=== PATIENT | female | born 1945 | race Caucasian/White ===

== ENCOUNTER 2016-12-04 13:39 | Outpatient (CLI) | payer MEDICARE | END 2016-12-04 13:40 | disposition home or self-care (01) | DX: R41.3 Other amnesia (principal); M25.531 Pain in right wrist; S52.511A Displaced fracture of right radial styloid process, initial encounter for closed fracture ==

== ENCOUNTER 2016-12-04 14:22 | Outpatient (CLI) | payer MEDICARE | END 2016-12-04 14:23 | disposition home or self-care (01) | DX: M25.531 Pain in right wrist (principal); S52.511A Displaced fracture of right radial styloid process, initial encounter for closed fracture ==

== ENCOUNTER 2016-12-24 10:57 | Outpatient (CLI) | payer MEDICARE | END 2016-12-24 10:58 | disposition home or self-care (01) | DX: K59.00 Constipation, unspecified (principal) ==

== ENCOUNTER 2017-02-14 14:30 | Outpatient (CLI) | payer MEDICARE | END 2017-02-14 14:31 | disposition home or self-care (01) | DX: S97.82XA Crushing injury of left foot, initial encounter (principal); S92.355A Nondisplaced fracture of fifth metatarsal bone, left foot, initial encounter for closed fracture; W18.30XA Fall on same level, unspecified, initial encounter; M20.12 Hallux valgus (acquired), left foot ==

== ENCOUNTER 2017-03-22 15:40 | Outpatient (CLI) | payer MEDICARE ==
--- NOTE | 2017-03-22 18:31 | XRAY Report ---
THREE-VIEW LEFT FOOT: 03/22/2017 CLINICAL INDICATION: Fracture followup. FINDINGS: AP, lateral, oblique views of the left foot demonstrate callus formation at the fifth meta tarsal shaft fracture site. Hallux valgus and osteoarthritis appear stable. No new fracture is seen . IMPRESSION: INTERVAL CALLUS FORMATION AT THE LEFT FIFTH METATARSAL FRACTURE SITE, BUT FRACTURE LINES DO REMAIN EVIDENT. JOB #: [id number] EXT JOB #:[id number]
== END 2017-03-22 23:59 | disposition home or self-care (01) ==
LOC: DI.S 15:40
PROVIDERS: ATTEND Physician Assistant
DX: S92.352D Displaced fracture of fifth metatarsal bone, left foot, subsequent encounter for fracture with routine healing (principal)

== ENCOUNTER 2017-05-10 10:18 | Outpatient (CLI) | payer MEDICARE ==
--- NOTE | 2017-05-11 16:47 | Mammography Report ---
DIGITAL SCREENING MAMMOGRAM: 05/10/2017 CLINICAL INDICATION: A 71-year-old with family history of breast cancer, history of late childbearin g, history of bilateral benign biopsies for screening. TECHNIQUE: Routine CC and MLO projections were obtained of the breasts. The patient was uncertain where her previous mammograms were performed, and there are no records of p revious mammograms performed at our facility. If records in your office indicate where prior mammogr ams were performed, we would be happy to try to obtain them for direct comparison. Otherwise, this w ill serve as a new baseline. FINDINGS: The breasts demonstrate heterogeneously dense fibroglandular parenchyma bilaterally. A fe w punctate, typically benign calcifications are present. Post-biopsy changes are noted bilaterally. No suspicious masses, clustered microcalcifications, or regions of architectural distortion are iden tified. IMPRESSION: BENIGN FINDINGS. RECOMMENDATION: Routine annual screening unless otherwise clinically indicated. BIRADS CATEGORY 2 - BENIGN FINDINGS. STANDARD QUALIFYING STATEMENTS 1. This examination was reviewed with the aid of Computer-Aided Detection (CAD). 2. A negative or benign imaging report should not delay biopsy if clinically suspicious findings are present. Consider surgical consultation if warranted. More than 5% of cancers are not identified by i danika. 3. Dense breasts may obscure an underlying neoplasm. JOB #: [id number] EXT JOB #:[id number]
== END 2017-05-10 10:19 | disposition home or self-care (01) ==
LOC: DI 10:18
PROVIDERS: ATTEND Physician Assistant
DX: Z12.31 Encounter for screening mammogram for malignant neoplasm of breast (principal); Z80.3 Family history of malignant neoplasm of breast
CPT/HCPCS: 77067

== ENCOUNTER 2017-05-10 10:20 | Outpatient (CLI) | payer MEDICARE ==
--- NOTE | 2017-05-10 13:05 | DEXA Report ---
DEXA SCAN: 05/10/2017 CLINICAL INDICATION: Postmenopausal. TECHNIQUE: Dual energy x-ray absorptiometry (DXA) was performed on a [employer] system. Regions measured are the AP spine, femoral neck, and, if needed, forearm. COMPARISON: None. In accordance with the International Society for Clinical Densitometry (ISCD) guidelines, data from previous exams may be reanalyzed using current recommendations and techniques. This is done to allow a more accurate basis for comparison with the current study. FINDINGS: The data for the lumbar spine is as follows: REGION BMD (g/cm/cm) T-SCORE Z-SCORE L1 0.914 -1.8 -0.7 L2 0.977 -1.9 -0.8 L3 1.180 -0.2 0.9 L4 1.163 -0.3 0.8 TOTAL 1.071 -0.9 0.2 NOTE: All evaluable vertebrae are used for classification. The data for the hip is as follows: REGION BMD (g/cm/cm) T-SCORE Z-SCORE Neck 0.732 -2.2 -0.9 TOTAL 0.861 -1.2 -0.1 NOTE: The femoral neck or total proximal femur, whichever is lowest, is used for classification. IMPRESSION: THE WHO CLASSIFICATION BASED ON THE INTERNATIONAL REFERENCE STANDARD IS OSTEOPENIA. THE FRACTURE RISK IS INCREASED. RECOMMENDATION: Patients with diagnosis of osteoporosis or osteopenia should have regular bone mineral density assessment. For those eligible for Medicare, routine testing is allowed once every 2 years. Testing frequency can be increased for patients who have rapidly progressing disease or for those who are receiving medical therapy to restore bone mass. COMMENT: World Health Organization (WHO) definitions for osteoporosis and osteopenia: NORMAL BMD: T-score at -1.0 or higher, fracture risk is low. OSTEOPENIA BMD: T-score between -1.0 and -2.5, fracture risk is increased. OSTEOPOROSIS BMD: T-score at -2.5 or lower, fracture risk high. National Osteoporosis Foundation recommends: 1. Obtain adequate dietary calcium (at least 1200 mg per day) and vitamin D (400 -800 international units per day). 2. Participate, as appropriate, in regular weightbearing and muscle- strengthening exercise. 3. Avoid tobacco use and reduce alcohol and caffeine intake. 4. For more detailed information see the website at www.NOF.org. MTDD
== END 2017-05-10 10:21 | disposition home or self-care (01) ==
LOC: DI 10:20
PROVIDERS: ATTEND Physician Assistant
DX: M85.88 Other specified disorders of bone density and structure, other site (principal)
CPT/HCPCS: 77080

== ENCOUNTER 2017-10-20 10:29 | Outpatient (CLI) | payer MEDICARE ==
--- NOTE | 2017-10-20 13:13 | XRAY Report ---
RIGHT RIB SERIES: 10/20/2017 COMPARISON: Two-view chest 06/17/2014. INDICATION: Right chest pain. TECHNIQUE: Three views of the right ribs with frontal chest. FINDINGS: There is a possible nondisplaced fracture of the right posterior fourth rib. No displaced fractures or pneumothorax. Lungs appear otherwise clear. There is postoperative change of the right humeral head. IMPRESSION: POSSIBLE NONDISPLACED FRACTURE OF THE RIGHT POSTERIOR FOURTH RIB. CORRELATE CLINICALLY. :9 JOB #: [id number] EXT JOB #: [id number] [facility]
--- NOTE | 2017-10-20 13:15 | XRAY Report ---
RIGHT FOOT: 10/20/2017 COMPARISON: None. INDICATION: Fell. Right foot pain. TECHNIQUE: Three views of the right foot. FINDINGS: Slight cortical irregularity of the base of the second proximal phalanx could represent a fracture but is nonspecific. There are severe degenerative changes of the first metatarsophalangeal joint. There is hardware of the distal fibula. IMPRESSION: 1. SLIGHT CORTICAL IRREGULARITY OF THE BASE OF THE SECOND PROXIMAL PHALANX. CORRELATE CLINICALLY FOR POSSIBLE FRACTURE. 2. SEVERE FIRST METATARSOPHALANGEAL JOINT OSTEOARTHRITIS. JOB #: [id number] EXT JOB #: [id number] [facility]
== END 2017-10-20 10:30 | disposition home or self-care (01) ==
LOC: DI.S 10:29
PROVIDERS: ATTEND Nurse Practitioner Family
DX: S99.921A Unspecified injury of right foot, initial encounter (principal); R07.1 Chest pain on breathing; M19.071 Primary osteoarthritis, right ankle and foot

== ENCOUNTER 2017-10-25 10:45 | Outpatient (CLI) | payer MEDICARE ==
[~2017-10-25 10:45] MED LIST: IOPAMIDOL-300 100 ML VIAL ONE
[2017-10-25 11:46] LABS: BASOPHILS % (AUTO) 0.8 %; EOSINOPHILS # (AUTO) 0.2 10^3/uL (0.0-0.7); EOSINOPHILS % (AUTO) 3.2 %; HCT - HEMATOCRIT 43.7 % (37.0-47.0); HGB - HEMOGLOBIN 15.1 g/dL (12.0-16.0); LYMPHOCYTES # (AUTO) 1.9 10^3/uL (1.5-3.5); LYMPHOCYTES % (AUTO) 39.3 %; MEAN CORPUSCULAR HEMOGLOBIN 30.7 pg (27.0-31.0); MEAN CORPUSCULAR HGB CONC 34.6 g/dL (32.0-36.0); MEAN CORPUSCULAR VOLUME 88.9 fL (81.0-99.0); MONOCYTES # (AUTO) 0.4 10^3/uL (0.0-1.0); MONOCYTES % (AUTO) 8.7 %; NEUTROPHILS # (AUTO) 2.4 10^3/uL (1.5-6.6); NUCLEATED RED BLOOD CELLS AUTO 0.1 /100WBC; RED BLOOD COUNT 4.91 10^6/uL (4.20-5.40); RED CELL DISTRIBUTION WIDTH 13.5 % (12.0-15.0); UNCORRECTED WHITE BLOOD COUNT 4.9 x10^3/uL; WHITE BLOOD COUNT 4.9 x10^3/uL (4.8-10.8)
[2017-10-25 11:52] LABS: ALBUMIN/GLOBULIN RATIO 1.5 (1.0-2.2); BILIRUBIN,TOTAL 0.8 mg/dL (0.2-1.0); CALCIUM 9.1 mg/dL (8.5-10.3); CREATININE 0.7 mg/dL (0.4-1.0); TOTAL PROTEIN 7.3 g/dL (6.7-8.2)
[2017-10-25] MEDS ORDERED: IOPAMIDOL-300 100 ML VIAL IVP ONE (13:28)
--- NOTE | 2017-10-25 13:50 | CT Report ---
EXAM: CT HEAD EXAM DATE: 10/25/2017 12:19 PM. CLINICAL HISTORY: TRAUMA RIGHT FOOT, PAINFUL R CHEST, NAUSEA, headache. COMPARISON: Head CT 12/04/2016. TECHNIQUE: Multiaxial CT images were obtained from the foramen magnum to the vertex. Reformats: Coron al. IV contrast: After initial noncontrast head CT, routine contrast enhanced head CT was performed w ith 80 mL Isovue 300. In accordance with CT protocol optimization, one or more of the following dose reduction techniques w ere utilized for this exam: automated exposure control, adjustment of mA and/or KV based on patient s ize, or use of iterative reconstructive technique. FINDINGS: Parenchyma: No intraparenchymal hemorrhage. No evidence of mass, midline shift, or CT findings of acu te infarction. Artis-white differentiation is distinct. Diffuse chronic microangiopathic white matter changes are evident. No enhancing mass or abnormal region of enhancement. Extraaxial Spaces: Normal for age. No subdural or epidural collections identified. Ventricles: The ventricles and cortical sulci are enlarged, consistent with age-related tissue loss. Sinuses and orbits: Imaged paranasal sinuses, orbits, and mastoids show no significant abnormality. Bones: No evidence of fracture or calvarial defect. Other: None. IMPRESSION: Generalized age-related cortical atrophic changes without evidence of acute intracranial abnormality. [facility] Referring Provider Line: [phone] SITE ID: [id number]
== END 2017-10-25 10:46 | disposition home or self-care (01) ==
LOC: LAB 10:45
PROVIDERS: ATTEND Nurse Practitioner Family
DX: R07.89 Other chest pain (principal); S09.90XA Unspecified injury of head, initial encounter; R42 Dizziness and giddiness; R51 Headache; S99.921A Unspecified injury of right foot, initial encounter; R41.3 Other amnesia
CPT/HCPCS: 36415; 70470; 80053; 85025; Q9967

== ENCOUNTER 2018-07-20 13:50 | Outpatient (CLI) | payer MEDICARE ==
--- NOTE | 2018-07-20 15:43 | Ultrasound Report ---
Reason: PAIN IF CALF,LEFT, THROMBOYTOSIS Procedure Date: 07/20/2018 Accession Number: [id number] / [id number] Procedure: US - Duplex Ext Veins Left CPT Code: FULL RESULT: EXAM: LEFT LOWER EXTREMITY VENOUS ULTRASOUND EXAM DATE: 07/20/2018 02:50 PM. CLINICAL HISTORY: PAIN left CALF, THROMBOYTOSIS. COMPARISON: None. TECHNIQUE: Real-time sonographic vascular imaging was performed by the fishing lure assembler through the lower extremity utilizing both color-flow and Doppler spectral analysis. Multiple ambulatory services representative static images were saved for review. FINDINGS: Left: Common Femoral Vein (CFV): Normal. CFV-GSV Junction: Normal. Profunda Femoral Vein (PFV): Normal. Femoral Vein (FV) Prox: Normal. Femoral Vein (FV) Mid: Normal. Femoral Vein (FV) Dist: Normal. Popliteal Vein: Normal. Posterior Tibial Veins: Normal. Peroneal Veins: Normal. Contralateral right Side CFV: Normal. Other: None. IMPRESSION: No evidence for deep venous thrombosis left lower extremity. [facility]
== END 2018-07-20 13:51 | disposition home or self-care (01) ==
LOC: DI 13:50
PROVIDERS: ATTEND Physician Assistant
DX: M79.662 Pain in left lower leg (principal); D47.3 Essential (hemorrhagic) thrombocythemia

== ENCOUNTER 2018-08-28 15:33 | Outpatient (CLI) | payer MEDICARE ==
--- NOTE | 2018-08-28 16:25 | XRAY Report ---
Reason: LEFT FOOT PAIN, LEFT TOE SWELLING Procedure Date: 08/28/2018 Accession Number: [id number] / [id number] Procedure: XR - Foot 3 View LT CPT Code: FULL RESULT: EXAM: LEFT FOOT RADIOGRAPHY EXAM DATE: 08/28/2018 03:50 PM. CLINICAL HISTORY: Left foot pain, left toe swelling. COMPARISON: FOOT 3 VIEW LT 03/22/2017 3:14 PM. TECHNIQUE: 3 views. FINDINGS: Bones: Complete interval fusion of the fifth metatarsal distal diaphyseal fracture. Trabecular and cortical patterns are intact. Joints: Stable grade 2 subluxation and moderate bunion deformity first MTP joint. Soft Tissues: New marked edema medial to the first MTP joint with bandage artifact. No other radiopaque foreign body. IMPRESSION: 1. No acute bony abnormality. 2. Edema medial to the first MTP joint. Exclude cellulitis. [facility]
== END 2018-08-28 15:34 | disposition home or self-care (01) ==
LOC: DI 15:33
PROVIDERS: ATTEND Nurse Practitioner Family
DX: M79.672 Pain in left foot (principal); R60.0 Localized edema

== ENCOUNTER 2018-08-30 13:06 | Emergency (ER) | payer MEDICARE ==
[2018-08-30] MEDS ORDERED: SODIUM CHLORIDE 0.9% 1,000 ML IV ONE ×2 (13:17→14:14)
[2018-08-30] MEDS ORDERED: METOCLOPRAMIDE 10 MG/2 ML VIAL IVP STA (13:17)
[2018-08-30] MEDS ORDERED: MECLIZINE 12.5 MG TABLET PO STA (13:26)
[2018-08-30] MEDS ORDERED: LORazepam 2 MG/ML VIAL IVP STA (13:26)
--- NOTE | 2018-08-30 13:43 | ED Physician Documentation ---
History of Present Illness - Stated complaint Stated Complaint: DIZZY/VOMITING - Chief complaint Chief Complaint: Neuro - History obtained from History obtained from: Patient, Family - Additonal information Additional information: 72-year-old female was brought to the emergency department for evaluation of a sudden onset of headache, dizziness and pain in her head that radiates to her neck. The patient does report feeling dizzy earlier today and then had a sudden onset of headache and increased dizziness with nausea and vomiting. The patient describes pain in the back of her occiput which radiates into her neck. The patient describes a spinning sensation and feeling off balance. The patient denies confusion, speech difficulties, slurred speech, facial numbness, facial weakness or motor or sensory changes in her upper or lower extremities. Symptoms occurred suddenly. Symptoms are described as severe. No specific triggering factors. No relieving factors. Review of Systems Constitutional: denies: Fever, Fatigue Eyes: denies: Loss of vision, Decreased vision Ears: denies: Loss of hearing, Ear pain Nose: denies: Congestion Throat: denies: Sore throat Cardiac: denies: Chest pain / pressure Respiratory: denies: Cough GI: reports: Nausea, Vomiting. denies: Abdominal Pain : denies: Dysuria Skin: denies: Rash Musculoskeletal: reports: Neck pain Neurologic: reports: Headache. 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 - Present Medications Home Medications: Ambulatory Orders Medication Instructions Recorded Confirmed Desvenlafaxine Succinate [Pristiq 50 mg PO DAILY 06/17/14 10/20/15 ER] Levothyroxine Sodium 25 mcg PO DAILY 06/17/14 10/20/15 lamoTRIgine [Lamotrigine] 5 mg PO DAILY 06/17/14 10/20/15 Cholecalciferol (Vitamin D3) 1 tab PO DAILY 10/20/15 10/20/15 [Vitamin D] Garlic 1 tab PO DAILY 10/20/15 10/20/15 Grape Seed Extract [Grape Seed] 100 mg pe PO DAILY 10/20/15 10/20/15 [place]-3 Fatty Acids/Fish Oil 1 tab PO DAILY 10/20/15 10/20/15 [[place] 3 1,000 mg Softgel] - Allergies Allergies/Adverse Reactions: Allergies Allergy/AdvReac Type Severity Reaction Status Date / Time amitriptyline Allergy Anxiety Verified 10/20/15 07:48 fluoxetine HCl * Allergy Hallucinati Verified 10/20/15 07:48 [From Prozac] ons hydromorphone HCl * Allergy Hallucinati Verified 06/17/14 17:45 [From Dilaudid] ons Interferons Allergy Anxiety Verified 10/20/15 07:48 omeprazole [From Prilosec] Allergy Unknown Verified 10/20/15 07:48 omeprazole magnesium * Allergy Unknown Verified 10/20/15 07:48 [From Prilosec] Sulfa (Sulfonamide Allergy Unknown Verified 06/17/14 17:45 Antibiotics) venlafaxine HCl * Allergy Anxiety Verified 10/20/15 07:48 [From Effexor] - Social History Does the pt smoke?: No Smoking Status: Former smoker Does the pt drink ETOH?: No Does the pt have substance abuse?: No - POLST Patient has POLST: No PD ED PE NORMAL - General General: Alert and oriented X 3. No: No acute distress (The patient appears acutely uncomfortable) - HEENT HEENT: Atraumatic, PERRL, EOMI, Ears normal, Moist mucous membranes, Pharynx benign - Neck Neck: Supple, no meningeal sign - Cardiac Cardiac: RRR, Strong equal pulses - Respiratory Respiratory: No respiratory distress - Abdomen Abdomen: Soft, Non tender, Non distended - Derm Derm: Normal color - Extremities Extremities: No deformity, Normal ROM s pain, No edema, Other (A Romberg test was unable to be performed secondary to the patient's symptoms) - Neuro Neuro: Alert and oriented X 3, basket hand weaver 2-12 intact, No motor deficit, No sensory deficit, Normal speech Eye Opening: Spontaneous Motor: Obeys Commands Verbal: Oriented GCS Score: 15 - Psych Psych: Normal mood Results - Vitals Vitals: Vital Signs - 24 hr 08/30/18 08/30/18 08/30/18 13:21 14:30 16:12 Temperature 35.6 C L Heart Rate 84 77 77 Respiratory 18 12 12 Rate Blood Pressure 203/109 H 162/82 H 166/75 H O2 Saturation 99 96 100 08/30/18 18:52 Temperature Heart Rate 87 Respiratory 12 Rate Blood Pressure 145/88 H O2 Saturation 97 Oxygen O2 Source Room air - EKG (time done) 13:16 Rate: Rate (enter#) Rhythm: NSR [place]: Normal Intervals: Normal [place], QRS normal QRS: Normal Ischemia: Normal ST segments - Labs Labs: Laboratory Tests 08/30/18 08/30/18 08/30/18 13:34 13:34 13:34 WBC 7.6 RBC 4.40 Hgb 13.7 Hct 40.2 MCV 91.5 MCH 31.3 H MCHC 34.1 RDW 15.5 H Plt Count 2443 H* MPV 7.2 L Neut # (Auto) 3.9 Lymph # (Auto) 2.5 [place] # (Auto) 0.7 Eos # (Auto) 0.3 Baso # (Auto) 0.2 H Absolute Nucleated RBC 0.00 Nucleated RBC % 0.0 Manual Slide Review Indicated Platelet Estimate INCREASED (>450,000) Platelet Morphology RARE GIANT PLATELETS ESR PT 12.7 H INR 1.1 APTT 31.4 Sodium 136 Potassium 3.5 Chloride 101 Carbon Dioxide 23 Anion Gap 12.0 BUN 15 Creatinine 0.8 Estimated GFR (MDRD) 71 L Glucose 150 H Calcium 9.5 Total Bilirubin 0.5 AST 34 ALT 27 Alkaline Phosphatase 53 Total Creatine Kinase 106 Troponin I C-Reactive Protein Total Protein 7.4 Albumin 4.6 Globulin 2.8 Albumin/Globulin Ratio 1.6 Lipase 56 H TSH Free T4 Urine Color Urine Clarity Urine pH Ur Specific [place] Urine Protein Urine Glucose (UA) Urine Ketones Urine Occult Blood Urine Nitrite Urine Bilirubin Urine Urobilinogen Ur Leukocyte Esterase Urine RBC Urine WBC Ur Squamous Epith Cells Amorphous Sediment Urine Bacteria Ur Microscopic Review Urine Culture Comments Slides for Path Review Indicated 08/30/18 08/30/18 08/30/18 13:34 13:34 13:34 WBC RBC Hgb Hct MCV MCH MCHC RDW Plt Count MPV Neut # (Auto) Lymph # (Auto) [place] # (Auto) Eos # (Auto) Baso # (Auto) Absolute Nucleated RBC Nucleated RBC % Manual Slide Review Platelet Estimate Platelet Morphology ESR PT INR APTT Sodium Potassium Chloride Carbon Dioxide Anion Gap BUN Creatinine Estimated GFR (MDRD) Glucose Calcium Total Bilirubin AST ALT Alkaline Phosphatase Total Creatine Kinase Troponin I < 0.04 C-Reactive Protein Total Protein Albumin Globulin Albumin/Globulin Ratio Lipase TSH 5.59 Free T4 1.02 Urine Color Urine Clarity Urine pH Ur Specific [place] Urine Protein Urine Glucose (UA) Urine Ketones Urine Occult Blood Urine Nitrite Urine Bilirubin Urine Urobilinogen Ur Leukocyte Esterase Urine RBC Urine WBC Ur Squamous Epith Cells Amorphous Sediment Urine Bacteria Ur Microscopic Review Urine Culture Comments Slides for Path Review 08/30/18 08/30/18 08/30/18 13:34 13:34 15:05 WBC RBC Hgb Hct MCV MCH MCHC RDW Plt Count MPV Neut # (Auto) Lymph # (Auto) [place] # (Auto) Eos # (Auto) Baso # (Auto) Absolute Nucleated RBC Nucleated RBC % Manual Slide Review Platelet Estimate Platelet Morphology ESR 3 PT INR APTT Sodium Potassium Chloride Carbon Dioxide Anion Gap BUN Creatinine Estimated GFR (MDRD) Glucose Calcium Total Bilirubin AST ALT Alkaline Phosphatase Total Creatine Kinase Troponin I C-Reactive Protein < 1.0 Total Protein Albumin Globulin Albumin/Globulin Ratio Lipase TSH Free T4 Urine Color YELLOW Urine Clarity CLEAR Urine pH 7.5 Ur Specific [place] 1.015 Urine Protein NEGATIVE Urine Glucose (UA) NEGATIVE Urine Ketones 15 H Urine Occult Blood NEGATIVE Urine Nitrite NEGATIVE Urine Bilirubin NEGATIVE Urine Urobilinogen 0.2 (NORMAL) Ur Leukocyte Esterase TRACE H Urine RBC 0-5 Urine WBC 4-5 Ur Squamous Epith Cells FEW Squamous Amorphous Sediment Few Urine Bacteria Rare Ur Microscopic Review INDICATED Urine Culture Comments INDICATED Slides for Path Review - Rads (name of study) CT Head CTA HEAD/NECK Radiology: Final report received (IMPRESSION: No acute intracranial abnormality.CTA neck 1. Moderate atherosclerotic calcification at the CCA bifurcation in the neck bilaterally. No significant stenosis. The carotid circulation is 2. Bilateral vertebral arteries are patent and unremarkable. CTA head 1. No intracranial stenosis or large vessel occlusion. 2. Mild bulbous appearance at the trifurcation of proximal M2 branch of the left MCA within the sylvian fissure. This may represent normal variant bulbous appearance at a trifurcation rather than a focal aneurysm. 3. Near origin of the right COMPONENT ENGINEER as continuation of the right PCOM. 4. The intracranial left vertebral artery is dominant. ) PD MEDICAL DECISION MAKING - ED course ED course: The patient's presentation was concerning for multiple significant etiologies, the CT angiogram of her head and neck does not show any acute abnormality that would necessitate emergent surgical intervention. The patient's workup does reveal significantly elevated platelets, this appears to be an acute condition of an unclear etiology. The patient will require further workup and management with hematology. The patient is a [facility] patient and the transfer center was consulted. I discussed the case with the [facility] transfer physician who agrees that this patient will require urgent evaluation. He discussed the case with the national sales who recommends transfer for ongoing management. The national sales recommends giving the patient a dose of hydroxyurea in the emergency department before transfer. The patient appears appropriate for transfer and is stable at this point. The findings and plan were discussed with the patient and her and they understand and agree to the plan Departure - Departure Disposition: 02 Transfer Acute Care Hosp Clinical Impression: Dizziness, Neck pain, Thrombocythemia Acute headache Qualifiers: Headache type: unspecified Intractability: not intractable Qualified Code(s): R51 - Headache Condition: Good
[2018-08-30 13:55] LABS: BASOPHILS # (AUTO) 0.2 10^3/uL (0.0-0.1); BASOPHILS % (AUTO) 2.5 %; EOSINOPHILS # (AUTO) 0.3 10^3/uL (0.0-0.7); HGB - HEMOGLOBIN 13.7 g/dL (12.0-16.0); LYMPHOCYTES # (AUTO) 2.5 10^3/uL (1.5-3.5); MEAN CORPUSCULAR HEMOGLOBIN 31.3 pg (27.0-31.0); MEAN CORPUSCULAR HGB CONC 34.1 g/dL (32.0-36.0); MEAN CORPUSCULAR VOLUME 91.5 fL (81.0-99.0); MEAN PLATELET VOLUME 7.2 fL (7.9-10.8); MONOCYTES # (AUTO) 0.7 10^3/uL (0.0-1.0); MONOCYTES % (AUTO) 8.9 %; NEUTROPHILS # (AUTO) 3.9 10^3/uL (1.5-6.6); NEUTROPHILS % (AUTO) 51.6 %; RED CELL DISTRIBUTION WIDTH 15.5 % (12.0-15.0); WHITE BLOOD COUNT 7.6 x10^3/uL (4.8-10.8)
[2018-08-30 13:57] LABS: INR 1.1 (0.8-1.2); PT - PROTHROMBIN TIME 12.7 secs (9.9-12.6)
[2018-08-30 14:02] LABS: ALBUMIN 4.6 g/dL (3.2-5.5); ALBUMIN/GLOBULIN RATIO 1.6 (1.0-2.2); BILIRUBIN,TOTAL 0.5 mg/dL (0.2-1.0); CALCIUM 9.5 mg/dL (8.5-10.3); CREATININE 0.8 mg/dL (0.4-1.0); TOTAL PROTEIN 7.4 g/dL (6.7-8.2)
[2018-08-30 14:03] LABS: PLT - PLATELET COUNT 2443 10^3/uL (130-450)
[2018-08-30 14:11] LABS: PLATELET ESTIMATE, MANUAL INCREASED (>450,000) (NORMAL); PLATELET MORPHOLOGY RARE GIANT PLATELETS (NORMAL)
--- NOTE | 2018-08-30 14:15 | CT Report ---
Reason: dizziness, SPARKS Procedure Date: 08/30/2018 Accession Number: [id number] / [id number] Procedure: CT - Head W/O CPT Code: FULL RESULT: EXAM: CT HEAD EXAM DATE: 08/30/2018 01:54 PM. CLINICAL HISTORY: Dizziness, SPARKS. COMPARISON: 10/25/2017. TECHNIQUE: Multiaxial CT images were obtained from the foramen magnum to the vertex. Reformats: Sagittal and coronal. IV contrast: None. In accordance with CT protocol optimization, one or more of the following dose reduction techniques were utilized for this exam: automated exposure control, adjustment of mA and/or KV based on patient size, or use of iterative reconstructive technique. FINDINGS: Parenchyma: No intraparenchymal hemorrhage. No evidence of mass, midline shift, or CT findings of infarction. Artis-white differentiation is distinct. Extraaxial Spaces: Normal for age. No subdural or epidural collections identified. Ventricles: Normal in size and position. Sinuses and Orbits: Imaged paranasal sinuses, orbits, and mastoids show no significant abnormality. Bones: No evidence of fracture or calvarial defect. Other: None. IMPRESSION: No acute intracranial abnormality. [facility]
[2018-08-30] MEDS ORDERED: IOPAMIDOL-300 100 ML VIAL ONE (14:33)
[2018-08-30] MEDS ORDERED: IOPAMIDOL-300 100 ML VIAL IVP ONE (14:59)
[2018-08-30 15:22] LABS: BILIRUBIN,URINE NEGATIVE (NEGATIVE); GLUCOSE, URINE (UA) NEGATIVE (NEGATIVE); KETONES,URINE (UA) 15 mg/dL (NEGATIVE); LEUKOCYTE ESTERASE, URINE TRACE (NEGATIVE); NITRITE,URINE NEGATIVE (NEGATIVE); OCCULT BLOOD,URINE NEGATIVE (NEGATIVE); PH,URINE 7.5 PH (5.0-7.5); PROTEIN,URINE NEGATIVE (NEGATIVE); UROBILINOGEN,URINE 0.2 (NORMAL) E.U./dL (NORMAL)
--- NOTE | 2018-08-30 15:25 | CT Report ---
Reason: gardner, dizziness Procedure Date: 08/30/2018 Accession Number: [id number] / [id number] Procedure: CT - Neck Angio CPT Code: FULL RESULT: EXAM: CT ANGIOGRAM HEAD AND NECK. CT SCAN HEAD WITH CONTRAST. EXAM DATE:08/30/2018 02:57 PM. CLINICAL HISTORY:Headache, dizziness. COMPARISON:CT scan of the head without contrast 08/30/2018 at 1353 hrs. TECHNIQUE: Routine axial helical CTA imaging was performed from the aortic arch through the [place] of [place]. Routine axial CT imaging of the head was performed following contrast administration. Reconstructions: Routine multiplanar 3D MIP reconstructions. IV contrast: ISOVUE 300 80mL. NASCET Criteria are used for stenosis measurements. In accordance with CT protocol optimization, one or more of the following dose reduction techniques were utilized for this exam: automated exposure control, adjustment of mA and/or KV based on patient size, or use of iterative reconstructive technique. FINDINGS: CT SCAN HEAD POSTCONTRAST: (See report of noncontrast CT scan of the head performed same time.) No abnormal intracranial enhancement. CT ANGIOGRAM EXTRACRANIAL CIRCULATION: Mild tortuosity and scattered calcification is seen involving the aortic arch and great vessels off the arch. Normal three-vessel branching is noted. Great vessels are patent and unremarkable. Right Carotid: The common carotid, internal carotid, and external carotid arteries are widely patent. No dissection. Moderate atherosclerotic calcification is seen at the CCA bifurcation and proximal ICA. Mild, 25% stenosis is present. Left Carotid: The common carotid, internal carotid, and external carotid arteries are widely patent. No dissection. Moderate atherosclerotic calcification is seen at the CCA bifurcation and proximal ICA. No significant stenosis. Vertebrals: The vertebrobasilar system shows no stenosis, dissection, aneurysm, or significant atherosclerotic disease. CT ANGIOGRAM INTRACRANIAL CIRCULATION: Unremarkable. No stenoses or aneurysms of the visualized vessels. There is near origin of the right [employer] as continuation of the PCOM. The right P1 segment is markedly hypoplastic. The ACOM and left PCOM are patent and unremarkable. The left vertebral artery is dominant primarily forming the basilar artery. The distal V4 segment of the right vertebral artery is small in caliber after the PICA origin. Subtle bulbous appearance is seen at the trifurcation of proximal M2 branch of the left MCA within the anterior sylvian fissure. Three vessels are seen arising from this bulbous trifurcation. This measures up to 2.2 mm in diameter, with adjacent M2 branch proximal to this measuring approximately 1.5 mm in diameter. The dural venous sinuses are patent. Other: The visualized lung apices are clear without consolidation. The muscle and fascial planes of the neck are unremarkable. Spondylosis is noted throughout the cervical spine. Vacuum cleft phenomenon is seen posteriorly in the left C2-C3 foramen, likely secondary to adjacent degenerative facet change. This vacuum cleft phenomenon is posterior to the distal V2 segment of the vertebral artery, without underlying stenosis. IMPRESSION: CT SCAN HEAD POSTCONTRAST: (See report of noncontrast CT scan of the head performed same time.) 1. No abnormal intracranial enhancement. CT ANGIOGRAM NECK: 1. Moderate atherosclerotic calcification at the CCA bifurcation in the neck bilaterally. No significant stenosis. The carotid circulation is patent. 2. Bilateral vertebral arteries are patent and unremarkable. CT ANGIOGRAM HEAD: 1. No intracranial stenosis or large vessel occlusion. 2. Mild bulbous appearance at the trifurcation of proximal M2 branch of the left MCA within the sylvian fissure. This may represent normal variant bulbous appearance at a trifurcation rather than a focal aneurysm. 3. Near origin of the right [employer] as continuation of the right PCOM. 4. The intracranial left vertebral artery is dominant. RADIA
--- NOTE | 2018-08-30 15:25 | CT Report ---
Reason: gardner, dizziness Procedure Date: 08/30/2018 Accession Number: [id number] / [id number] Procedure: CT - Head Angio CPT Code: FULL RESULT: EXAM: CT ANGIOGRAM HEAD AND NECK. CT SCAN HEAD WITH CONTRAST. EXAM DATE:08/30/2018 02:57 PM. CLINICAL HISTORY:Headache, dizziness. COMPARISON:CT scan of the head without contrast 08/30/2018 at 1353 hrs. TECHNIQUE: Routine axial helical CTA imaging was performed from the aortic arch through the [place] of [place]. Routine axial CT imaging of the head was performed following contrast administration. Reconstructions: Routine multiplanar 3D MIP reconstructions. IV contrast: ISOVUE 300 80mL. NASCET Criteria are used for stenosis measurements. In accordance with CT protocol optimization, one or more of the following dose reduction techniques were utilized for this exam: automated exposure control, adjustment of mA and/or KV based on patient size, or use of iterative reconstructive technique. FINDINGS: CT SCAN HEAD POSTCONTRAST: (See report of noncontrast CT scan of the head performed same time.) No abnormal intracranial enhancement. CT ANGIOGRAM EXTRACRANIAL CIRCULATION: Mild tortuosity and scattered calcification is seen involving the aortic arch and great vessels off the arch. Normal three-vessel branching is noted. Great vessels are patent and unremarkable. Right Carotid: The common carotid, internal carotid, and external carotid arteries are widely patent. No dissection. Moderate atherosclerotic calcification is seen at the CCA bifurcation and proximal ICA. Mild, 25% stenosis is present. Left Carotid: The common carotid, internal carotid, and external carotid arteries are widely patent. No dissection. Moderate atherosclerotic calcification is seen at the CCA bifurcation and proximal ICA. No significant stenosis. Vertebrals: The vertebrobasilar system shows no stenosis, dissection, aneurysm, or significant atherosclerotic disease. CT ANGIOGRAM INTRACRANIAL CIRCULATION: Unremarkable. No stenoses or aneurysms of the visualized vessels. There is near origin of the right [employer] MECH[employer]IC as continuation of the PCOM. The right P1 segment is markedly hypoplastic. The ACOM and left PCOM are patent and unremarkable. The left vertebral artery is dominant primarily forming the basilar artery. The distal V4 segment of the right vertebral artery is small in caliber after the PICA origin. Subtle bulbous appearance is seen at the trifurcation of proximal M2 branch of the left MCA within the anterior sylvian fissure. Three vessels are seen arising from this bulbous trifurcation. This measures up to 2.2 mm in diameter, with adjacent M2 branch proximal to this measuring approximately 1.5 mm in diameter. The dural venous sinuses are patent. Other: The visualized lung apices are clear without consolidation. The muscle and fascial planes of the neck are unremarkable. Spondylosis is noted throughout the cervical spine. Vacuum cleft phenomenon is seen posteriorly in the left C2-C3 foramen, likely secondary to adjacent degenerative facet change. This vacuum cleft phenomenon is posterior to the distal V2 segment of the vertebral artery, without underlying stenosis. IMPRESSION: CT SCAN HEAD POSTCONTRAST: (See report of noncontrast CT scan of the head performed same time.) 1. No abnormal intracranial enhancement. CT ANGIOGRAM NECK: 1. Moderate atherosclerotic calcification at the CCA bifurcation in the neck bilaterally. No significant stenosis. The carotid circulation is patent. 2. Bilateral vertebral arteries are patent and unremarkable. CT ANGIOGRAM HEAD: 1. No intracranial stenosis or large vessel occlusion. 2. Mild bulbous appearance at the trifurcation of proximal M2 branch of the left MCA within the sylvian fissure. This may represent normal variant bulbous appearance at a trifurcation rather than a focal aneurysm. 3. Near origin of the right [employer]CH[employer]IC as continuation of the right PCOM. 4. The intracranial left vertebral artery is dominant. RADIA
[2018-08-30 15:30] LABS: CLARITY,URINE CLEAR (CLEAR)
[2018-08-30 15:31] LABS: RBC,URINE 0-5 /HPF (0-5); SQUAMOUS EPITHELIAL CELL,UR FEW Squamous (<= Few)
[2018-08-30 15:32] LABS: AMORPHOUS SEDIMENT,UR Few /LPF; BACTERIA,URINE Rare /HPF (None Seen)
[2018-08-30] MEDS ORDERED: HYDROXYUREA 500 MG CAPSULE PO STA (19:57)
[2018-08-30] MEDS ORDERED: ACETAMINOPHEN 500 MG TABLET PO STA (22:40)
[2018-08-31 00:03] VITALS: BP 123/56
== END 2018-08-31 00:17 | disposition short-term general hospital (02) ==
LOC: ED 13:06
DX: R42 Dizziness and giddiness (principal); M54.2 Cervicalgia; D47.3 Essential (hemorrhagic) thrombocythemia; R51 Headache; E03.9 Hypothyroidism, unspecified; Z96.659 Presence of unspecified artificial knee joint; Z87.891 Personal history of nicotine dependence
CPT/HCPCS: 36415; 70450; 70496; 70498; 80053; 80175; 81001; 82550; 83690; 84439; 84443; 84484; 85025; 85610; 85651; 85730; 86140; 87086; 93005; 96361; 96374; 99284; A9270; J2060; J2765; Q9967; 81003; 99285

== ENCOUNTER 2018-08-31 16:36 | Outpatient (CLI) | payer MEDICARE | END 2018-08-31 16:37 | disposition critical access hospital (66) | LOC: EMS 16:36 | PROVIDERS: ATTEND Surgery | DX: S09.90XA Unspecified injury of head, initial encounter (principal); R07.81 Pleurodynia; M54.2 Cervicalgia; W01.0XXA Fall on same level from slipping, tripping and stumbling without subsequent striking against object, initial encounter; Y93.01 Activity, walking, marching and hiking; Y92.008 Other place in unspecified non-institutional (private) residence as the place of occurrence of the external cause | CPT/HCPCS: A0425; A0427 ==

== ENCOUNTER 2018-08-31 16:59 | Emergency (ER) | payer MEDICARE ==
[2018-08-31] MEDS ORDERED: SODIUM CHLORIDE 0.9% 1,000 ML IV ONE (17:07)
--- NOTE | 2018-08-31 17:11 | ED Physician Documentation ---
PD HPI MAJOR TRAUMA - Stated complaint Stated Complaint: aloc - Chief complaint Chief Complaint: Trauma Ch/Bk - History obtained from History obtained from: Patient, Family, EMS - History of Present Illness Mechanism of injury: Fell Where injury occurred: Home Timing - onset: How many hours ago (1) Injury(ies) location: Head, Chest (L chest), Left Lower Extremity (hip) Pain level max: 8 Pain level now: 8 Quality of pain: Pain, Aching Associated symptoms: LOC (30 seconds), AMS, Nausea / vomiting (nausea, no vomiting). No: Hematemesis, Abdominal distension Symptoms improve with: Rest Worsens with: Movement, Palpation Contributing factors: No: Anticoagulated, Intoxicated Recently seen: Emergency Dept (seen here yesterday and sent to [facility] for thrombocytosis and headache) Review of Systems Ten Systems: 10 systems reviewed and negative Constitutional: denies: Fever Ears: denies: Ear pain Nose: denies: Rhinorrhea / runny nose, Congestion Throat: denies: Sore throat Cardiac: denies: Chest pain / pressure, Palpitations Respiratory: denies: Dyspnea, Cough, Wheezing GI: denies: Abdominal Pain, Nausea, Vomiting, Diarrhea Skin: denies: Rash Musculoskeletal: denies: Neck pain, Back pain Neurologic: reports: Altered mental status (intermittently confused). 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 - Present Medications Home Medications: Ambulatory Orders Medication Instructions Recorded Confirmed Desvenlafaxine Succinate [Pristiq 50 mg PO DAILY 06/17/14 10/20/15 ER] Levothyroxine Sodium 25 mcg PO DAILY 06/17/14 10/20/15 lamoTRIgine [Lamotrigine] 5 mg PO DAILY 06/17/14 10/20/15 Cholecalciferol (Vitamin D3) 1 tab PO DAILY 10/20/15 10/20/15 [Vitamin D] Garlic 1 tab PO DAILY 10/20/15 10/20/15 Grape Seed Extract [Grape Seed] 100 mg pe PO DAILY 10/20/15 10/20/15 [place]-3 Fatty Acids/Fish Oil 1 tab PO DAILY 10/20/15 10/20/15 [[place] 3 1,000 mg Softgel] - Allergies Allergies/Adverse Reactions: Allergies Allergy/AdvReac Type Severity Reaction Status Date / Time amitriptyline Allergy Anxiety Verified 10/20/15 07:48 fluoxetine HCl * Allergy Hallucinati Verified 10/20/15 07:48 [From Prozac] ons hydromorphone HCl * Allergy Hallucinati Verified 06/17/14 17:45 [From Dilaudid] ons Interferons Allergy Anxiety Verified 10/20/15 07:48 omeprazole [From Prilosec] Allergy Unknown Verified 10/20/15 07:48 omeprazole magnesium * Allergy Unknown Verified 10/20/15 07:48 [From Prilosec] Sulfa (Sulfonamide Allergy Unknown Verified 06/17/14 17:45 Antibiotics) venlafaxine HCl * Allergy Anxiety Verified 10/20/15 07:48 [From Effexor] - Social History Does the pt smoke?: No Smoking Status: Former smoker Does the pt drink ETOH?: No Does the pt have substance abuse?: No - Immunizations Immunizations are current?: Yes - POLST Patient has POLST: No PD ED PE NORMAL - Vitals Vital signs reviewed: Yes - General General: No acute distress, Well developed/nourished, Other (alert, oriented to person and place. doesn't recall event. ) - HEENT HEENT: Atraumatic, PERRL, Moist mucous membranes, Pharynx benign - Neck Neck: Supple, no meningeal sign, No bony TTP - Cardiac Cardiac: RRR, Strong equal pulses - Respiratory Respiratory: No respiratory distress, Clear bilaterally - Abdomen Abdomen: Soft, Non tender, Non distended - Back Back: No spinal TTP - Derm Derm: Warm and dry - Extremities Extremities: Other (L hip TTP. but good ROM. NVI.) - Neuro Neuro: Alert and oriented X 3 - Psych Psych: Normal mood, Normal affect - Free text exam Free text exam: TTP over the L chest wall, no crepitus or contusion Results - Vitals Vitals: Vital Signs - 24 hr 08/31/18 08/31/18 08/31/18 17:01 17:10 17:30 Temperature 36.4 C L Heart Rate 81 Respiratory 23 Rate Blood Pressure 175/95 H O2 Saturation 99 08/31/18 08/31/18 08/31/18 18:00 19:00 20:00 Temperature Heart Rate 81 88 86 Respiratory 18 16 20 Rate Blood Pressure 173/82 H 142/58 H 139/65 H O2 Saturation 97 96 96 08/31/18 08/31/18 21:08 21:42 Temperature Heart Rate 77 81 Respiratory 20 18 Rate Blood Pressure 134/64 H 138/55 H O2 Saturation 97 97 Oxygen O2 Source Room air - EKG (time done) 2101 Rate: Rate (enter#) (75) Rhythm: NSR Tillman: Normal Intervals: Normal OK QRS: Normal Ischemia: Normal ST segments - Labs Labs: Laboratory Tests 08/31/18 08/31/18 08/31/18 17:25 17:25 20:07 WBC 11.4 H RBC 4.01 L Hgb 12.4 Hct 37.0 MCV 92.3 MCH 30.9 MCHC 33.5 RDW 15.4 H Plt Count 2243 H* MPV 7.3 L Neut # (Auto) 7.1 H Lymph # (Auto) 3.0 Bartholomew # (Auto) 1.0 Eos # (Auto) 0.2 Baso # (Auto) 0.1 Absolute Nucleated RBC 0.00 Nucleated RBC % 0.0 Manual Slide Review Indicated WBC Morphology NORMAL APPEARANCE Platelet Estimate INCREASED (>450,000) Platelet Morphology RARE GIANT PLATELETS RBC Morph Micro Appear NORMAL APPEARANCE Sodium 131 L Potassium 4.0 Chloride 99 L Carbon Dioxide 24 Anion Gap 8.0 BUN 17 Creatinine 0.8 Estimated GFR (MDRD) 71 L Glucose 115 H Calcium 8.8 Total Bilirubin 0.2 AST 40 ALT 24 Alkaline Phosphatase 52 Troponin I 0.29 Total Protein 6.5 L Albumin 4.1 Globulin 2.4 Albumin/Globulin Ratio 1.7 Lipase 34 - Rads (name of study) head CT Radiology: Prelim report reviewed, EMP read contemporaneously, See rad report (No acute intracranial abnormality) cervical spine ct Radiology: Prelim report reviewed, EMP read contemporaneously, See rad report (No acute cervical spine abnormality) chest xray Radiology: Prelim report reviewed, EMP read contemporaneously, See rad report (No acute cardiothoracic abnormality) pelvis xray Radiology: Prelim report reviewed, EMP read contemporaneously, See rad report (Mildly displaced inferior and superior left pubic ramus fractures) abd/pelvis CT Radiology: Prelim report reviewed, EMP read contemporaneously, See rad report (Left superior and inferior pubic ramus fractures and left ischium fracture) PD MEDICAL DECISION MAKING - ED course Complexity details: reviewed results, re-evaluated patient, considered differential, d/w patient, d/w family, d/w dietitian consultant ED course: Patient is a 72-year-old female who presents to the emergency department after a trip and fall today. No acute findings on EKG. Troponin is mildly elevated at 0.29. She does not currently have chest pain however. She is found to have a left-sided pubic ramus fracture and ischium fracture. Discussed the case with Ar skinner, Dr. Sunny Vela who found a bed for her at [facility] in [place], accepted by Dr. David Turner at 2100. She will be transferred to [facility] in [place] for further evaluation and care. This document was made in part using voice recognition software. While efforts are made to proofread this document, sound alike and grammatical errors may occur. Departure - Departure Disposition: 02 Transfer Acute Care Hosp Clinical Impression: Thrombocytosis Pubic ramus fracture Qualifiers: Encounter type: initial encounter Fracture type: closed Laterality: left Qualified Code(s): S32.592A - Other specified fracture of left pubis, initial encounter for closed fracture Condition: Stable Discharge Date/Time: 08/31/18 22:05
--- NOTE | 2018-08-31 17:31 | CT Report ---
Reason: fall Procedure Date: 08/31/2018 Accession Number: [id number] / [id number] Procedure: CT - Head W/O CPT Code: FULL RESULT: EXAM: CT HEAD EXAM DATE: 08/31/2018 05:17 PM. CLINICAL HISTORY: Fall. COMPARISON: NECK ANGIO 08/30/2018 2:47 PM HEAD W/O 08/30/2018 1:53 PM. TECHNIQUE: Multiaxial CT images were obtained from the foramen magnum to the vertex. Reformats: Sagittal and coronal. IV contrast: None. In accordance with CT protocol optimization, one or more of the following dose reduction techniques were utilized for this exam: automated exposure control, adjustment of mA and/or KV based on patient size, or use of iterative reconstructive technique. FINDINGS: Parenchyma: No intraparenchymal hemorrhage. No evidence of mass, midline shift, or CT findings of acute infarction. Artis-white differentiation is distinct. Diffuse chronic microangiopathic white matter changes are evident. Extraaxial Spaces: Normal for age. No subdural or epidural collections identified. Ventricles: The ventricles and cortical sulci are enlarged, consistent with age-related tissue loss. Sinuses and orbits: Imaged paranasal sinuses, orbits, and mastoids show no significant abnormality. Bones: No evidence of fracture or calvarial defect. Other: Status post bilateral cataract procedures. IMPRESSION: Generalized age-related cortical atrophic changes without evidence of acute intracranial abnormality. RADIA
[2018-08-31] MEDS ORDERED: PROMETHAZINE INJ 25 MG in SODIUM CHLORIDE 0.9% 50 ML IV STA (17:41)
[2018-08-31 17:44] LABS: BASOPHILS # (AUTO) 0.1 10^3/uL (0.0-0.1); BASOPHILS % (AUTO) 0.8 %; EOSINOPHILS # (AUTO) 0.2 10^3/uL (0.0-0.7); EOSINOPHILS % (AUTO) 1.6 %; HGB - HEMOGLOBIN 12.4 g/dL (12.0-16.0); LYMPHOCYTES % (AUTO) 26.4 %; MEAN CORPUSCULAR HEMOGLOBIN 30.9 pg (27.0-31.0); MEAN CORPUSCULAR HGB CONC 33.5 g/dL (32.0-36.0); MEAN CORPUSCULAR VOLUME 92.3 fL (81.0-99.0); MEAN PLATELET VOLUME 7.3 fL (7.9-10.8); MONOCYTES % (AUTO) 8.7 %; NEUTROPHILS # (AUTO) 7.1 10^3/uL (1.5-6.6); NEUTROPHILS % (AUTO) 62.5 %; RED BLOOD COUNT 4.01 10^6/uL (4.20-5.40); RED CELL DISTRIBUTION WIDTH 15.4 % (12.0-15.0); WHITE BLOOD COUNT 11.4 x10^3/uL (4.8-10.8)
[2018-08-31 17:51] LABS: ALBUMIN 4.1 g/dL (3.2-5.5); ALBUMIN/GLOBULIN RATIO 1.7 (1.0-2.2); BILIRUBIN,TOTAL 0.2 mg/dL (0.2-1.0); CALCIUM 8.8 mg/dL (8.5-10.3); CREATININE 0.8 mg/dL (0.4-1.0); TOTAL PROTEIN 6.5 g/dL (6.7-8.2)
[2018-08-31 17:59] LABS: PLT - PLATELET COUNT 2243 10^3/uL (130-450)
[2018-08-31 18:00] LABS: PLATELET ESTIMATE, MANUAL INCREASED (>450,000) (NORMAL); PLATELET MORPHOLOGY RARE GIANT PLATELETS (NORMAL); RBC MORPHOLOGY (MULTIPLE) NORMAL APPEARANCE (NORMAL)
--- NOTE | 2018-08-31 18:03 | XRAY Report ---
Reason: fall, L hip pain Procedure Date: 08/31/2018 Accession Number: [id number] / [id number] Procedure: XR - Pelvis 1 View CPT Code: FULL RESULT: EXAM: PELVIS RADIOGRAPHY EXAM DATE: 08/31/2018 05:09 PM. CLINICAL HISTORY: Fall, L hip pain. COMPARISON: None. TECHNIQUE: 1 view. FINDINGS: Bones: There are minimally displaced fractures of left superior and inferior pubic rami. No definite sacral fracture is appreciated. Joints: Mild osteoarthritic changes. Soft Tissues: Surgical clips in the pelvis. IMPRESSION: Minimally displaced fractures of the left superior and inferior pubic rami. RADIA
--- NOTE | 2018-08-31 18:08 | XRAY Report ---
Reason: fall, L rib pain Procedure Date: 08/31/2018 Accession Number: [id number] / [id number] Procedure: XR - Chest 1 View X-Ray CPT Code: 44677 FULL RESULT: EXAM: CHEST RADIOGRAPHY EXAM DATE: 08/31/2018 05:23 PM. CLINICAL HISTORY: Fall, L rib pain. COMPARISON: RIBS W/PA CHEST RT 10/20/2017 10:42 AM CERVICAL SPINE W/O 08/31/2018 5:12 PM. TECHNIQUE: 1 view. FINDINGS: Lungs/Pleura: No focal opacities evident. No pleural effusion. No pneumothorax. Mediastinum: Within exam limitations, the cardiomediastinal contour is normal. Other: None. IMPRESSION: Normal single view chest. RADIA
[2018-08-31] MEDS ORDERED: IOPAMIDOL-300 100 ML VIAL ONE (18:24)
--- NOTE | 2018-08-31 18:24 | CT Report ---
Reason: fall, neck pain Procedure Date: 08/31/2018 Accession Number: [id number] / [id number] Procedure: CT - Cervical Spine W/O CPT Code: FULL RESULT: EXAM: CT CERVICAL SPINE WITHOUT CONTRAST DATE: 08/31/2018 05:17 PM. HISTORY: Fall, neck pain. COMPARISONS: None. TECHNIQUE: Thin-section axial images were acquired of the cervical spine without contrast. Post-processing: Coronal and sagittal reformats. Other: None. In accordance with CT protocol optimization, one or more of the following dose reduction techniques were utilized for this exam: automated exposure control, adjustment of mA and/or KV based on patient size, or use of iterative reconstructive technique. FINDINGS: Alignment: Multilevel grade 1 degenerative subluxation. Bones: No fracture or bone lesion. Interspace Levels/Facets: Multilevel moderate to marked degenerative changes. Greatest degree of central spinal canal stenosis is moderate at C3-C4 with mild flattening of the cervical cord. Multilevel marked bony neural foraminal compromise. Musculature: Normal. No fatty atrophy. Other: The paravertebral and prevertebral soft tissues are unremarkable. The lung apices are clear. IMPRESSION: No acute bony abnormality. RADIA
[2018-08-31] MEDS ORDERED: IOPAMIDOL-300 100 ML VIAL IVP ONE (19:28)
--- NOTE | 2018-08-31 19:28 | CT Report ---
Reason: fall, L pelvic pain Procedure Date: 08/31/2018 Accession Number: [id number] / [id number] Procedure: CT - Abdomen/Pelvis W/ CPT Code: FULL RESULT: EXAM: CT ABDOMEN AND PELVIS EXAM DATE: 08/31/2018 06:59 PM. CLINICAL HISTORY: Fall. Left pelvic pain. COMPARISONS: ABDOMEN/PELVIS W/ 08/11/2015 10:48 AM. TECHNIQUE: Routine helical CT imaging was performed through the abdomen and pelvis. IV contrast: 100 cc of Isovue-300. Enteric contrast: No. Reconstructions: Coronal and sagittal. In accordance with CT protocol optimization, one or more of the following dose reduction techniques were utilized for this exam: automated exposure control, adjustment of mA and/or KV based on patient size, or use of iterative reconstructive technique. FINDINGS: Lung Bases: Unremarkable. Liver: Normal. No masses. Gallbladder/Bile Ducts: Unremarkable. Spleen: Normal. Pancreas: Normal. Adrenal Glands: Normal. Kidneys: Normal. No masses or hydronephrosis. Peritoneal Cavity/Bowel: Normal. No free fluid, free air or adenopathy. No masses or acute inflammatory process. Nonvisualized appendix. Pelvic Organs: Hysterectomy. Unremarkable bladder. Vasculature: No aneurysms or other significant abnormality. Bones: Mildly displaced left ischial and pubic rami fractures. Degenerative disk disease at L4-L5 with stable mild anterolisthesis. Other: None. IMPRESSION: 1. Mildly displaced left ischial and pubic rami fractures. 2. Hysterectomy noted. RADIA
[2018-08-31 21:42] VITALS: BP 138/55
== END 2018-08-31 22:05 | disposition short-term general hospital (02) ==
LOC: EDUNIT# → ED 16:59
DX: D47.3 Essential (hemorrhagic) thrombocythemia (principal); S32.592A Other specified fracture of left pubis, initial encounter for closed fracture; S29.9XXA Unspecified injury of thorax, initial encounter; W01.0XXA Fall on same level from slipping, tripping and stumbling without subsequent striking against object, initial encounter; Y92.009 Unspecified place in unspecified non-institutional (private) residence as the place of occurrence of the external cause; R79.89 Other specified abnormal findings of blood chemistry; R41.82 Altered mental status, unspecified; R07.89 Other chest pain; E03.9 Hypothyroidism, unspecified; Z87.891 Personal history of nicotine dependence; Z96.659 Presence of unspecified artificial knee joint
CPT/HCPCS: 36415; 70450; 71045; 72125; 72170; 74177; 80053; 83690; 84484; 85025; 93005; 96365; 99284; 99285; J7040; Q9967

== ENCOUNTER 2018-08-31 21:48 | Outpatient (CLI) | payer MEDICARE | END 2018-08-31 21:49 | disposition short-term general hospital (02) | LOC: EMS 21:48 | PROVIDERS: ATTEND Surgery | DX: S32.9XXA Fracture of unspecified parts of lumbosacral spine and pelvis, initial encounter for closed fracture (principal); W19.XXXA Unspecified fall, initial encounter | CPT/HCPCS: A0170; A0425; A0426 ==

== ENCOUNTER 2018-09-18 13:09 | Outpatient (CLI) | payer MEDICARE ==
[2018-09-18 17:52] LABS: ABNORMAL LYMPHS % (MANUAL) 0 %; BAND NEUTROPHILS % (MANUAL) 0 %
[2018-09-18 18:20] LABS: HGB - HEMOGLOBIN 10.7 g/dL (12.0-16.0); MEAN CORPUSCULAR HGB CONC 34.6 g/dL (32.0-36.0); MEAN CORPUSCULAR VOLUME 92.3 fL (81.0-99.0); MEAN PLATELET VOLUME 8.3 fL (7.9-10.8); MEAN RETIC VALUE 162.2; PLT - PLATELET COUNT 321 10^3/uL (130-450); RED BLOOD COUNT 3.33 10^6/uL (4.20-5.40); RED CELL DISTRIBUTION WIDTH 14.5 % (12.0-15.0)
[2018-09-18 19:13] LABS: THYROID STIMULATING HORMONE 1.13 uIU/mL (0.34-5.60)
[2018-09-18 19:19] LABS: FERRITIN 446.9 ng/mL (11.0-306.8)
[2018-09-18 19:28] LABS: IRON 175 ug/dL (28-170)
[2018-09-18 19:56] LABS: % IRON SATURATION 63 % (20-50); TOTAL IRON BINDING CAPACITY 281 ug/dL (250-450); TRANSFERRIN 201 mg/dL (192-382)
[2018-09-18 20:19] LABS: BASOPHILS % (MANUAL) 2 %; DIFFERENTIAL COMMENT MANUAL DIFFERENTIAL; LYMPHOCYTES % (MANUAL) 48 %; NEUTROPHILS % (MANUAL) 38 %
[2018-09-18 20:27] LABS: LYMPHOCYTES # (MANUAL) 0.5 10^3/uL (1.5-3.5); MONOCYTES # (MANUAL) 0.1 10^3/uL (0.0-1.0); WHITE BLOOD COUNT 1.1 x10^3/uL (4.8-10.8)
[2018-09-18 20:28] LABS: NEUTROPHILS # (MANUAL) 0.4 10^3/uL (1.5-6.6)
[2018-09-20 17:47] LABS: HAPTOGLOBIN 150 mg/dL (43-212)
[2018-09-21 09:51] LABS: BCR ABL1/ABL1 % (IS) 9.872 (0.000); SOURCE EDTA WHOLE BLOOD
[2018-09-21 20:46] LABS: ERYTHROPOIETIN 165.4 mIU/mL (2.6-18.5)
== END 2018-09-18 13:10 | disposition home or self-care (01) ==
LOC: LAB.F 13:09
PROVIDERS: ATTEND Internal Medicine
DX: D47.3 Essential (hemorrhagic) thrombocythemia (principal)
CPT/HCPCS: 36415; 81206; 82607; 82668; 82728; 83010; 83540; 84443; 84466; 85025; 85027; 85044; 86880

== ENCOUNTER 2018-09-19 14:13 | Outpatient (CLI) | payer MEDICARE | END 2018-09-19 14:14 | disposition home or self-care (01) | LOC: LAB.F 14:13 | PROVIDERS: ATTEND Internal Medicine | DX: D47.3 Essential (hemorrhagic) thrombocythemia (principal) | CPT/HCPCS: 81206; 81599; 85240; 85245; 85246; 85247; 85730 ==

== ENCOUNTER 2018-10-25 11:26 | Outpatient (CLI) | payer MEDICARE ==
--- NOTE | 2018-10-26 09:53 | CT Report ---
Reason: MULTIPLE FRACTURES OF PELVIS W/O DISRUPTION OF PEL Procedure Date: 10/25/2018 Accession Number: [id number] / [id number] Procedure: CT - Pelvis W/O CPT Code: FULL RESULT: EXAM: CT BONY PELVIS WITHOUT CONTRAST EXAM DATE: 10/25/2018 02:05 PM. CLINICAL HISTORY: Multiple pelvic fractures. Disruption of the pelvic ring. COMPARISON: 08/31/2018. TECHNIQUE: Thin-section axial images were acquired of the pelvis without contrast. Post-processing: Coronal and sagittal reformats. Other: None. In accordance with CT protocol optimization, one or more of the following dose reduction techniques were utilized for this exam: automated exposure control, adjustment of mA and/or KV based on patient size, or use of iterative reconstructive technique. FINDINGS: Bones: Mild osteopenia limits evaluation for subtle bony abnormalities. There is severe facet osteoarthritis in the lower lumbar spine. A left zone 1 sacral fracture is best visualized on series 3, image 80. There also appears to be a transverse fracture through the sacrum through the S2 neural foramina (series 3, image 92). The left anterior pubic root fracture now has greater lucency, with resorption often being the first stage of healing. The left parasymphyseal pubic bone fracture remains ununited. A left inferior pubic ramus fracture is now visible. These latter 2 fractures are nondisplaced. Sacroiliac Joints: No widening, erosions, or sclerosis. Symphysis Pubis: Mild osteoarthritis is present. Right Hip: The joint space is preserved. No calcified loose bodies. Left Hip: The joint space is preserved. No calcified loose bodies. Musculature: No fatty atrophy. Calcific tendinosis is at the left hamstring tendon origin. Pelvic Cavity: The visualized bowel, bladder, and reproductive organs are unremarkable on this noncontrast exam. Other: Arterial calcifications indicate atherosclerosis. IMPRESSION: 1. Partial H-type sacral fracture. 2. Left obturator ring fractures. RADIA
== END 2018-10-25 11:27 | disposition home or self-care (01) ==
LOC: DI 11:26
PROVIDERS: ATTEND Physician Assistant
DX: S32.82XD Multiple fractures of pelvis without disruption of pelvic ring, subsequent encounter for fracture with routine healing (principal)
CPT/HCPCS: 72192

== ENCOUNTER 2018-12-12 16:04 | Emergency (ER) | payer MEDICARE, OTHER ==
[2018-12-12] MEDS ORDERED: SODIUM CHLORIDE 0.9% 1,000 ML IV ONE ×2 (17:07→19:03)
--- NOTE | 2018-12-12 17:10 | ED Physician Documentation ---
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 Started when she was in [place] and has continued since that time. Does have chest pain with deep breathing on the left side. She has had nausea but no vomiting. Has chronic constipation. No fevers. Does feel thirsty and feels like she is urinating more frequently. States normal blood work last week other than her elevated platelet count. CML medications were stopped last week as it was thought that they may be contributing to her symptoms Review of Systems Ten Systems: 10 systems reviewed and negative Constitutional: reports: Chills. denies: Fever Ears: denies: Ear pain Nose: denies: Rhinorrhea / runny nose, Congestion Respiratory: denies: Dyspnea, Wheezing GI: reports: Nausea, Constipation. 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 - Present Medications Home Medications: Ambulatory Orders Medication Instructions Recorded Confirmed Desvenlafaxine Succinate [Pristiq 50 mg PO DAILY 06/17/14 12/06/18 ER] lamoTRIgine [Lamotrigine] 5 mg PO DAILY 06/17/14 12/06/18 Cholecalciferol (Vitamin D3) 1 tab PO DAILY 10/20/15 12/06/18 [Vitamin D] Garlic 1 tab PO DAILY 10/20/15 12/06/18 Lisinopril 1 tab ORAL DAILY 12/06/18 12/12/18 Ascorbic Acid [Vitamin C] 12/12/18 Hydroxyurea 1 cap PO 12/12/18 Multivitamin [Multiple Vitamins] 12/12/18 - Allergies Allergies/Adverse Reactions: Allergies Allergy/AdvReac Type Severity Reaction Status Date / Time amitriptyline Allergy Anxiety Verified 12/12/18 16:23 fluoxetine HCl * Allergy Hallucinati Verified 12/12/18 16:23 [From Prozac] ons hydromorphone HCl * Allergy Hallucinati Verified 12/12/18 16:23 [From Dilaudid] ons Interferons Allergy Anxiety Verified 12/12/18 16:23 omeprazole [From Prilosec] Allergy Unknown Verified 12/12/18 16:23 omeprazole magnesium * Allergy Unknown Verified 12/12/18 16:23 [From Prilosec] Sulfa (Sulfonamide Allergy Unknown Verified 12/12/18 16:23 Antibiotics) venlafaxine HCl * Allergy Anxiety Verified 12/12/18 16:23 [From Effexor] - Social History Does the pt smoke?: No Smoking Status: Former smoker Does the pt drink ETOH?: No Does the pt have substance abuse?: No - Immunizations Immunizations are current?: Yes - POLST Patient has POLST: No PD ED PE NORMAL - Vitals Vital signs reviewed: Yes - General General: Alert and oriented X 3, No acute distress, Well developed/nourished - HEENT HEENT: PERRL, Ears normal, Moist mucous membranes, Pharynx benign - Neck Neck: Supple, no meningeal sign - Cardiac Cardiac: RRR, Strong equal pulses - Respiratory Respiratory: No respiratory distress, Clear bilaterally - Abdomen Abdomen: Soft, Non distended, Other (Mild tenderness palpation left upper quadrant. No peritoneal signs) - Back Back: No spinal TTP - Derm Derm: Warm and dry, No rash - Extremities Extremities: No edema - Neuro Neuro: Alert and oriented X 3 - Psych Psych: Normal mood, Normal affect Results - Vitals Vitals: Vital Signs - 24 hr 12/12/18 12/12/18 16:14 18:58 Temperature 37.1 C Heart Rate 105 H 114 H Respiratory 16 16 Rate Blood Pressure 143/44 H 133/72 H O2 Saturation 98 96 Oxygen O2 Source Room air - Labs Labs: Laboratory Tests 12/12/18 12/12/18 12/12/18 17:46 17:46 17:46 WBC 66.7 H* RBC 2.90 L Hgb 10.2 L Hct 30.4 L MCV 104.6 H MCH 35.0 H MCHC 33.4 RDW 21.8 H Plt Count 59 L MPV 8.5 Neut # (Auto) Not Reportable Lymph # (Auto) Not Reportable [place] # (Auto) Not Reportable Eos # (Auto) Not Reportable Baso # (Auto) Not Reportable Absolute Nucleated RBC Not Reportable Total Counted 100 Band Neuts % (Manual) 2 Abnorm Lymph % (Manual) 0 Blast Cells % 75 H* Nucleated RBC % Not Reportable Neutrophils # (Manual) 10.7 H Lymphocytes # (Manual) 2.7 Monocytes # (Manual) 3.3 H Eosinophils # (Manual) 0.0 Basophils # (Manual) 0.0 Differential Comment MANUAL DIFFERENTIAL Manual Slide Review Indicated WBC Morphology NORMAL APPEARANCE Platelet Estimate DECREASED (<130,000) Platelet Morphology NORMAL APPEARANCE RBC Morph Micro Appear 1+ MACROCYTOSIS Sodium 124 L Potassium 4.3 Chloride 89 L Carbon Dioxide 26 Anion Gap 9.0 BUN 17 Creatinine 0.8 Estimated GFR (MDRD) 71 L Glucose 121 H Calcium 8.8 Total Bilirubin 0.7 AST 74 H ALT 35 Alkaline Phosphatase 92 Troponin I 0.04 Total Protein 6.3 L Albumin 3.6 Globulin 2.7 Albumin/Globulin Ratio 1.3 Lipase 21 L Influenza A (Rapid) Influenza B (Rapid) 12/12/18 17:53 WBC RBC Hgb Hct MCV MCH MCHC RDW Plt Count MPV Neut # (Auto) Lymph # (Auto) [place] # (Auto) Eos # (Auto) Baso # (Auto) Absolute Nucleated RBC Total Counted Band Neuts % (Manual) Abnorm Lymph % (Manual) Blast Cells % Nucleated RBC % Neutrophils # (Manual) Lymphocytes # (Manual) Monocytes # (Manual) Eosinophils # (Manual) Basophils # (Manual) Differential Comment Manual Slide Review WBC Morphology Platelet Estimate Platelet Morphology RBC Morph Micro Appear Sodium Potassium Chloride Carbon Dioxide Anion Gap BUN Creatinine Estimated GFR (MDRD) Glucose Calcium Total Bilirubin AST ALT Alkaline Phosphatase Troponin I Total Protein Albumin Globulin Albumin/Globulin Ratio Lipase Influenza A (Rapid) Negative Influenza B (Rapid) Negative - Rads (name of study) CT PA Radiology: Prelim report reviewed, EMP read contemporaneously, See rad report (No evidence of acute pulmonary embolism. 2. 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 3. Diffuse mosaic attenuation throughout both lungs with mild central bronchial wall thickening and findings suggesting expiratory acquisition, suggestive of air trapping from infectious/inflammatory bronchitis. 4. Partial visualization of splenomegaly in the upper abdomen. This is of uncertain etiology. No lymphadenopathy is demonstrated of the chest; however, lymphoproliferative disorder cannot be excluded. Suggest correlation with serum blood count. In addition, could consider CT of the abdomen and pelvis to assess for adenopathy. 5. Indeterminate pulmonary nodule in the right lower lobe. If patient is at high risk for lung cancer, optional follow-up chest CT may be considered in 12 months. This is unlikely to be manifestation of lymphoproliferative disorder. 6. Multiple acute-subacute left rib fractures, as described above. ) PD MEDICAL DECISION MAKING - ED course Complexity details: reviewed results, re-evaluated patient, considered differential, d/w patient, d/w animal nutrition consultant (Dr. Eren Vigil and accepts in transfer to [facility]. ) ED course: 73-year-old female presents the emergency department with CML and is found to be in blast crisis. Discussed the case with Dr. Eren Vigil, oncology who accepts in transfer to [facility] in [place]. COBRA forms completed. Patient transferred Patient also given IV fluids for hyponatremia This document was made in part using voice recognition software. While efforts are made to proofread this document, sound alike and grammatical errors may occur. 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
[2018-12-12] MEDS ORDERED: IOVERSOL 320 100 ML VIAL IVP ONE ×2 (17:14→18:26)
[2018-12-12 18:02] LABS: BASOPHILS % (AUTO) 0.7 %; EOSINOPHILS % (AUTO) 0.2 %; HGB - HEMOGLOBIN 10.2 g/dL (12.0-16.0); LYMPHOCYTES % (AUTO) 6.5 %; MEAN CORPUSCULAR HGB CONC 33.4 g/dL (32.0-36.0); MEAN CORPUSCULAR VOLUME 104.6 fL (81.0-99.0); MEAN PLATELET VOLUME 8.5 fL (7.9-10.8); MONOCYTES % (AUTO) 6.5 %; NEUTROPHILS % (AUTO) 86.1 %; PLT - PLATELET COUNT 59 10^3/uL (130-450); RED CELL DISTRIBUTION WIDTH 21.8 % (12.0-15.0)
[2018-12-12 18:03] LABS: WHITE BLOOD COUNT 66.7 x10^3/uL (4.8-10.8)
[2018-12-12 18:07] LABS: ALBUMIN 3.6 g/dL (3.2-5.5); ALBUMIN/GLOBULIN RATIO 1.3 (1.0-2.2); BILIRUBIN,TOTAL 0.7 mg/dL (0.2-1.0); CALCIUM 8.8 mg/dL (8.5-10.3); CREATININE 0.8 mg/dL (0.4-1.0); TOTAL PROTEIN 6.3 g/dL (6.7-8.2)
[2018-12-12 18:11] LABS: ABNORMAL LYMPHS % (MANUAL) 0 %
[2018-12-12 18:16] LABS: BAND NEUTROPHILS % (MANUAL) 2 %; LYMPHOCYTES # (MANUAL) 2.7 10^3/uL (1.5-3.5); LYMPHOCYTES % (MANUAL) 4 %; MONOCYTES # (MANUAL) 3.3 10^3/uL (0.0-1.0); NEUTROPHILS # (MANUAL) 10.7 10^3/uL (1.5-6.6); NEUTROPHILS % (MANUAL) 14 %
[2018-12-12 18:20] LABS: DIFFERENTIAL COMMENT MANUAL DIFFERENTIAL; PLATELET ESTIMATE, MANUAL DECREASED (<130,000) (NORMAL); PLATELET MORPHOLOGY NORMAL APPEARANCE (NORMAL)
--- NOTE | 2018-12-12 19:01 | CT Report ---
Reason: L sided pleuritic chest pain Procedure Date: 12/12/2018 Accession Number: [id number] / [id number] Procedure: CT - Chest Angio (PE) CPT Code: FULL RESULT: EXAM: CT ANGIOGRAM CHEST EXAM DATE: 12/12/2018 06:07 PM. CLINICAL HISTORY: L sided pleuritic chest pain. COMPARISON: Chest radiograph from 08/31/2018. TECHNIQUE: Routine helical imaging was performed through the chest in the pulmonary arterial phase. IV Contrast: 80 ML OPTIRAY 320. Reconstructions: Coronal 3-D MIP reconstructions.Sagittal and coronal. In accordance with CT protocol optimization, one or more of the following dose reduction techniques were utilized for this exam: automated exposure control, adjustment of mA and/or KV based on patient size, or use of iterative reconstructive technique. FINDINGS: Pulmonary Arteries: Diagnostic quality: Adequate through the segmental arteries. No evidence for acute or chronic pulmonary emboli. Lungs/Pleura: Evaluation of the pulmonary parenchyma is limited by respiratory motion. There is mild diffuse mosaic attenuation throughout both lungs. No significant intralobular septal thickening demonstrated. There is a 4 mm nodule in the superior segment of the right lower lobe (series 5, image 87). There is mild consolidation in the posterior basilar segment of the right lower lobe, likely atelectasis. Central airways are patent. Mild central bronchial wall thickening demonstrated. No pleural effusion. Mediastinum: Heart size is at the upper limits of normal. No pericardial effusion. No mediastinal or hilar adenopathy. Ascending thoracic aorta is normal in caliber, measuring up to 3.1 cm (series 11, image 91). Proximal descending thoracic aorta measures up to 3.0 cm (series 11, image 71). A tiny hiatal hernia is present. There is slight bowing of the posterior tracheal membrane, suggestive of expiration. Upper Abdomen: There appears to be surgical clips in the region of the gastrohepatic ligament and ligamentum venosum. The spleen is enlarged, measuring approximately 15.5 cm in anteroposterior dimension (series 4, image 144). Other: No axillary or supraclavicular adenopathy. There are acute-subacute fractures of the left anterolateral and lateral third through seventh ribs. No suspicious osseous lesion. IMPRESSION: 1. No evidence of acute pulmonary embolism. 2. 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 3. Diffuse mosaic attenuation throughout both lungs with mild central bronchial wall thickening and findings suggesting expiratory acquisition, suggestive of air trapping from infectious/inflammatory bronchitis. 4. Partial visualization of splenomegaly in the upper abdomen. This is of uncertain etiology. No lymphadenopathy is demonstrated of the chest; however, lymphoproliferative disorder cannot be excluded. Suggest correlation with serum blood count. In addition, could consider CT of the abdomen and pelvis to assess for adenopathy. 5. Indeterminate pulmonary nodule in the right lower lobe. If patient is at high risk for lung cancer, optional follow-up chest CT may be considered in 12 months. This is unlikely to be manifestation of lymphoproliferative disorder. 6. Multiple acute-subacute left rib fractures, as described above. [facility]
[2018-12-12] MEDS ORDERED: ACETAMINOPHEN 325 MG TABLET PO STA (19:58)
[2018-12-12 20:26] VITALS: BP 152/57
== END 2018-12-12 21:02 | disposition short-term general hospital (02) ==
LOC: ED 16:04
DX: C92.10 Chronic myeloid leukemia, BCR/ABL-positive, not having achieved remission (principal); E87.1 Hypo-osmolality and hyponatremia; R00.0 Tachycardia, unspecified; R91.1 Solitary pulmonary nodule; R16.1 Splenomegaly, not elsewhere classified; R35.0 Frequency of micturition; Z87.891 Personal history of nicotine dependence
CPT/HCPCS: 36415; 71275; 80053; 83690; 84484; 85025; 87275; 87276; 93005; 96360; 99284; A9270; Q9967

== ENCOUNTER 2018-12-12 20:55 | Outpatient (CLI) | payer MEDICARE, OTHER | END 2018-12-12 20:56 | disposition short-term general hospital (02) | LOC: EMS 20:55 | PROVIDERS: ATTEND Surgery | DX: C95.90 Leukemia, unspecified not having achieved remission (principal); E87.1 Hypo-osmolality and hyponatremia | CPT/HCPCS: A0425; A0426 ==